=== PATIENT | male | born 1940 | race Caucasian/White ===

== ENCOUNTER 2016-07-24 12:04 | Emergency (ER) | payer MEDICARE, OTHER ==
[2016-07-24 12:53] LABS: BASOPHILS % 0.5 (0.0-1.5); EOSINOPHILS % 5.8 % (0.0-6.8); MEAN CORPUSCULAR HEMOGLOBIN 29.7 pg (28.0-34.0); MEAN CORPUSCULAR VOLUME 91.2 fl (80.0-100.0); MONOCYTES % 5.7 % (0.0-11.0); NEUTROPHILS # 9.8 # k/uL (1.4-7.7)
[2016-07-24 12:58] LABS: APPEARANCE,URINE Clear (CLEAR); COLOR,URINE Yellow (YELLOW); OCCULT BLOOD,URINE Negative (NEGATIVE); PH URINE 6.5 (5.0 - 8.0); UROBILINOGEN URINE 0.2 Eu (0.2-1.0)
[2016-07-24] MEDS ORDERED: 0.9 % SODIUM CHLORIDE 500 ML IV ONE (13:10)
[2016-07-24 13:11] LABS: eGFR (African) > 60; eGFR (Non-African) > 60
--- NOTE | 2016-07-24 13:28 | ED Physician Documentation ---
General Adult - HISTORIAN Historian: paramedics, other ([place] report, records) - HPI Stated Complaint: fall with mental status changes Chief Complaint: General Adult Additional Information: [place] resident brought to ER per EMS. Said to have fallen from last evening, face to floor. Today is thought to be less responsive than his usual. - ROS CONST: no problems - PAST HX Past History: hypertension, other (dementia) Other History: other (dementia) Allergies/Adverse Reactions: Allergies Allergy/AdvReac Type Severity Reaction Status Date / Time No Known Allergies Allergy Verified 07/24/16 12:36 Home Medications: Ambulatory Orders Medication Instructions Recorded Donepezil HCl 10 mg PO HS 10/21/14 Levothyroxine Sodium 25 mcg PO DAILY 10/21/14 [Levothyroxine Sodium] Aspirin [Adult Low Dose Aspirin EC] 81 mg PO DAILY 07/24/16 Lactobacillus Acidophilus/Fos 1 tab PO TID 07/24/16 [Acidophilus Probiotic Tablet] Lisinopril [Prinivil] 20 mg PO BID 07/24/16 Memantine HCl [Namenda] 10 mg PO DAILY 07/24/16 Vit No.124/Iron/FA 1 tab PO DAILY 07/24/16 [ Vitamin Tablet] Thiamine HCl [Vitamin B-1] 100 mg PO DAILY 07/24/16 - SOCIAL HX Smoking History: non-smoker - FAMILY HX Family History: No - VITAL SIGNS Vital Signs: Vital Signs Temp Pulse Resp BP Pulse Ox 99/53 10/21/14 17:30 - REVIEWED ASSESSMENTS Nursing Assessment Reviewed: Yes Vitals Reviewed: Yes Progress - Progress Progress: Examination: CT head without contrast History: Fall Comparison exam: 04 Jul 2014 Technique: Noncontrast head CT protocol. Findings: Patient offset in scanner. Ventricles and sulci are prominent though stable to previous exam. Cerebrocerebellar parenchyma demonstrates periventricular attenuation consistent with age related small vessel disease: stable to previous exam. No evidence for parenchymal hemorrhage. No evidence for mass or mass effect. No midline shift. No extra axial fluid collections. Partial visualization of the paranasal sinuses demonstrate mucus thickening. Mastoid air cells, orbits, skull and scalp without gross regularity. Streak artifact from dental hardware. Impression: Extensive age related changes: stable to previous exam. No acute parenchymal process. No hemorrhage. Electronically signed on Jul 24, 2016 1:02:29 PM CDT by: Antony Donohue Examination: Portable chest History: Congestion, coughing Comparison exam: 4S2014 Findings: Single portable view of the chest demonstrates a normal cardiac silhouette. Mild tortuosity of thoracic aorta. Few vascular calcifications involving the aortic arch. Linear infiltrate right lung base. Left hemithorax without irregularity. Minimal blunting of the right costophrenic angle. Left costophrenic margin without abnormality. Osseous structures are appropriate for age. Impression: Right lung base infiltrate and likely small effusion. Follow is warranted. Electronically signed on Jul 24, 2016 1:18:40 PM CDT by: Antony Donohue EKG: sinus rhythm, 70 BPM, no acute changes. 1325, discussed pt with Dr. Fallon. ED Results Lab/Radiology - Lab Results Lab Results: Lab Results 07/24/16 12:45 WBC 12.40 K/ul H K/ul (4.00-12.00) RBC 4.84 M/ul M/ul (3.90-5.20) Hgb 14.4 g/dL g/dL (12.0-18.0) Hct 44.1 % % (37.0-53.0) MCV 91.2 fl fl (80.0-100.0) MCH 29.7 pg pg (28.0-34.0) MCHC 32.6 g/dL g/dL (30.0-36.0) RDW 13.5 % % (11.3-14.3) Plt Count 212 K/mm3 K/mm3 (130-400) Neut % (Auto) 78.8 % % (39.0-79.0) Lymph % (Auto) 8.3 % L % (16.0-50.0) [place] % (Auto) 5.7 % % (0.0-11.0) Eos % (Auto) 5.8 % % (0.0-6.8) Baso % (Auto) 0.5 (0.0-1.5) Neut # 9.8 # k/uL H # k/uL (1.4-7.7) Lymph # 1.0 # k/uL # k/uL (0.6-4.0) [place]irt # 0.7 # k/uL # k/uL (0.0-0.9) Eos # 0.7 # k/uL H # k/uL (0.0-0.6) Baso # 0.1 # k/uL # k/uL (0.0-0.5) Reactive Lymphs % 1.0 % % (0.0-5.0) Reactive Lymphs # 0.1 # k/uL # k/uL (0.0-0.8) - Orders Orders: ED Orders Category Date Time Status Continuous EKG monitoring Q1H Care 07/24/16 12:17 Active Continuous Pulse Oximetry Q1H Care 07/24/16 12:[address] IV Lock 1T Care 07/24/16 12:16 Active CHEST 1 VIEW [RAD] Stat Exams 07/24/[address] BRAIN W/O CONTRAST Stat Exams 07/24/16 Ordered CBC/PLATELET/DIFF Routine Lab 07/24/16 12:45 Completed CMP Routine Lab 07/24/16 12:45 Received UA [URINALYSIS] Routine Lab 07/24/16 12:45 Received Chem Sticks Med 07/24/16 13:00 Ordered 1 each CHEMQ EKG WITH COMPARISON Stat Ther 07/24/16 Ordered General Adult Physical Exam - PHYSICAL EXAM GENERAL APPEARANCE: no distress EENT: no signs of dehydration, other (right pupil 3 mm and reactive. Won't allow left eye to be opened. ) NECK: normal inspection, supple RESPIRATORY: no resp distress, breath sounds normal CVS: reg rate & rhythm, heart sounds normal ABDOMEN: soft, normal bowel sounds, no distension, non-tender RECTAL: deferred BACK: normal inspection SKIN: warm/dry, normal color, other (superficial abrasions forehead) EXTREMITIES: non-tender, other (abrasion mid left lower leg. R lateral flexion contracture of neck, 25 degrees) NEURO: other (verbal at times - mostly unintelligible. Does not follow commands. Spontaneous R eye opening. ) Discharge Clincal Impression: Right lower lobe pneumonia Qualifiers: Pneumonia type: due to unspecified organism Qualified Code(s): J18.1 - Lobar pneumonia, unspecified organism Referrals: Luis Daniel Fallon MD [Primary Care Provider] - 2 Days Home Medications: Ambulatory Orders Donepezil HCl 10 mg PO HS 10/21/14 Levothyroxine Sodium [Levothyroxine Sodium] 25 mcg PO DAILY 10/21/14 Aspirin [Adult Low Dose Aspirin EC] 81 mg PO DAILY 07/24/16 Lactobacillus Acidophilus/Fos [Acidophilus Probiotic Tablet] 1 tab PO TID Lisinopril [Prinivil] 20 mg PO BID 07/24/16 Memantine HCl [Namenda] 10 mg PO DAILY 07/24/16 Vit No.124/Iron/FA [ Vitamin Tablet] 1 tab PO DAILY 07/24/16 Thiamine HCl [Vitamin B-1] 100 mg PO DAILY 07/24/16 Condition: Good Disposition: 01 HOME, SELF-CARE Decision to Admit: NO Decision Time: 13:28
[2016-07-24] MEDS ORDERED: AZITHROMYCIN 200 MG/5 ML PO ONE (13:46)
[2016-07-24 14:14] VITALS: BP 132/74
--- NOTE | 2016-07-24 14:51 | Diagnostic Imaging Report ---
ESTHER BENSON - ROSELINE [facility] [address] [facility] [address] [place], [place]. [address] Report Submission Date: Jul 24, 2016 1:18:40 PM CDT Patient Study Name: ANN FREDERICK Date: Jul 24, 2016 12:55:45 PM CDT Modality Type: CR Gender: M Description: CHEST : 40 Institution: [facility] Physician: ESTHER BENSON - ROSELINE Examination: Portable chest History: Congestion, coughing Comparison exam: [id number] Findings: Single portable view of the chest demonstrates a normal cardiac silhouette. Mild tortuosity of thoracic aorta. Few vascular calcifications involving the aortic arch. Linear infiltrate right lung base. Left hemithorax without irregularity. Minimal blunting of the right costophrenic angle. Left costophrenic margin without abnormality. Osseous structures are appropriate for age. Impression: Right lung base infiltrate and likely small effusion. Follow is warranted. Electronically signed on Jul 24, 2016 1:18:40 PM CDT by: Antony SCHROEDER
--- NOTE | 2016-07-24 14:51 | Diagnostic Imaging Report ---
ESTHER BENSON [facility] [address] [facility] [address] [place], [place]. [address] Report Submission Date: Jul 24, 2016 1:02:29 PM CDT Patient Study Name: ANN FREDERICK Date: Jul 24, 2016 12:25:50 PM CDT Modality Type: CT\SR Gender: M Description: CT BRAIN W/O CONTRAST : 40 Institution: [facility] Physician: ESTHER BENSON Examination: CT head without contrast History: Fall Comparison exam: 04 Jul 2014 Technique: Noncontrast head CT protocol. Findings: Patient offset in scanner. Ventricles and sulci are prominent though stable to previous exam. Cerebrocerebellar parenchyma demonstrates periventricular attenuation consistent with age related small vessel disease: stable to previous exam. No evidence for parenchymal hemorrhage. No evidence for mass or mass effect. No midline shift. No extra axial fluid collections. Partial visualization of the paranasal sinuses demonstrate mucus thickening. Mastoid air cells, orbits, skull and scalp without gross regularity. Streak artifact from dental hardware. Impression: Extensive age related changes: stable to previous exam. No acute parenchymal process. No hemorrhage. Electronically signed on Jul 24, 2016 1:02:29 PM CDT by: Antony SCHROEDER
== END 2016-07-24 14:25 | disposition home or self-care (01) ==
LOC: ED 12:04
DX: J18.1 Lobar pneumonia, unspecified organism (principal)
CPT/HCPCS: 51701; 70450; 71010; 80053; 81002; 85025; 87040; J7060; 96360; 99284

== ENCOUNTER 2016-10-10 15:38 | Emergency (ER) | payer MEDICARE, OTHER ==
[2016-10-10] MEDS ORDERED: IPRATROPIUM/ALBUTEROL SULFATE 3 ML AMPUL.NEB NEB ONE (15:48)
[2016-10-10] MEDS ORDERED: BUDESONIDE 0.5MG/2ML AMPUL.NEB NEB ONE (15:49)
[2016-10-10] MEDS ORDERED: 0.9 % SODIUM CHLORIDE 1,000 ML IV SCH (16:00)
[2016-10-10 16:11] LABS: BASOPHILS % 0.7 (0.0-1.5); MEAN CORPUSCULAR HEMOGLOBIN 30.3 pg (28.0-34.0); MONOCYTES % 5.1 % (0.0-11.0); NEUTROPHILS # 6.1 # k/uL (1.4-7.7)
[2016-10-10] MEDS ORDERED: 0.9 % SODIUM CHLORIDE 1,000 ML IV ONE (16:12)
[2016-10-10 16:36] LABS: eGFR (African) > 60; eGFR (Non-African) 57
[2016-10-10] MEDS ORDERED: CEPHALEXIN 250 MG CAPSULE PO ONE (17:11)
[2016-10-10] MEDS ORDERED: METOCLOPRAMIDE HCL 5 MG TABLET PO ONE (17:11)
--- NOTE | 2016-10-10 17:11 | ED Physician Documentation ---
Upper Respiratory Symptoms - HISTORIAN Historian: other (medical record) - HPI Stated Complaint: Shortness of Breath Chief Complaint: Cough/ Upper Respiratory Additional Information: copious amounts of oral secretions/mucous Onset: minutes (30) Duration: sudden-Onset Context: denies: recent foreign travel, insect bite(s), tick(s), recent chemotherapy, multiple patients, same sx Severity: moderate Associated Symptoms: denies: fever, chills, sweating, earache, runny nose, sinus pain, sinus drainage, sore throat, hoarseness, allergy, hay fever, chest pain, bloody cough, productive cough, shortness of breath, hurts to breathe, headache Worsened by Deep Breath: No Further Comments: no - ROS CONST/EYES: denies: weakness, eye redness, eye itching CVS/RESP: other (cough). denies: chest pain, shortness of breath LYMPH: denies: leg swelling, rash, swollen glands, ankle swelling GI/: other (copious oral mucous production) NEURO/PSYCH: confusion (demented). denies: fainting, dizziness, anxiety, depression MS/SKIN: denies: joint pain, muscle aches, rash - PAST HX Lung Disease: none PE Risk Factors: none Other History: hypertension, other (hypothyroidism) Surgeries/Procedures: none Immunizations: referred to PCP Allergies/Adverse Reactions: Allergies Allergy/AdvReac Type Severity Reaction Status Date / Time No Known Allergies Allergy Verified 07/24/16 12:36 Home Medications: Ambulatory Orders Medication Instructions Recorded Donepezil HCl 10 mg PO HS 10/21/14 Levothyroxine Sodium 25 mcg PO DAILY 10/21/14 [Levothyroxine Sodium] Aspirin [Adult Low Dose Aspirin EC] 81 mg PO DAILY 07/24/16 Lactobacillus Acidophilus/Fos 1 tab PO TID 07/24/16 [Acidophilus Probiotic Tablet] Lisinopril [Prinivil] 20 mg PO BID 07/24/16 Memantine HCl [Namenda] 10 mg PO BID 07/24/16 Vit No.124/Iron/FA 1 tab PO DAILY 07/24/16 [ Vitamin Tablet] Thiamine HCl [Vitamin B-1] 100 mg PO DAILY 07/24/16 Acetaminophen [Tylenol] 650 mg PO TID PRN 10/10/16 Cholecalciferol [Vitamin D-3] 1,000 unit PO DAILY 10/10/16 Thiamine HCl [Vitamin B-1] 100 mg PO DAILY 10/10/16 - SOCIAL HX Smoking History: non-smoker Alcohol Use: none Drug Use: none - FAMILY HX Family History: no significant history - VITAL SIGNS Vital Signs: Vital Signs Temp Pulse Resp BP Pulse Ox 98.1 F 78 20 130/68 97 10/10/16 15:40 10/10/16 17:42 10/10/16 17:42 10/10/16 17:42 10/10/16 17:42 - REVIEWED ASSESSMENTS Nursing Assessment Reviewed: Yes Vitals Reviewed: Yes Progress - Results/Orders Results/Orders: cbc, cmp, ua, sputum and blood cultures, cxr, pt/ptt/inr ordered - Progress Progress: pt. given 1 liter ns, 10 mg reglan p.o., keflex 1000 mg p.o., duoneb and pulmicort 0.5 mg nebulizer txs in er Critical Care Note - Critical Care Note Total Time (mins): 0 ED Results Lab/Radiology - Lab Results Lab Results: Lab Results 10/10/16 10/10/16 10/10/16 16:05 16:05 16:05 WBC 8.90 K/ul K/ul (4.00-12.00) RBC 4.90 M/ul M/ul (3.90-5.20) Hgb 14.8 g/dL g/dL (12.0-18.0) Hct 45.1 % % (37.0-53.0) MCV 92.0 fl fl (80.0-100.0) MCH 30.3 pg pg (28.0-34.0) MCHC 32.9 g/dL g/dL (30.0-36.0) RDW 13.4 % % (11.3-14.3) Plt Count 177 K/mm3 K/mm3 (130-400) Neut % (Auto) 68.3 % % (39.0-79.0) Lymph % (Auto) 18.3 % % (16.0-50.0) [place] % (Auto) 5.1 % % (0.0-11.0) Eos % (Auto) 6.0 % % (0.0-6.8) Baso % (Auto) 0.7 (0.0-1.5) Neut # (Auto) 6.1 # k/uL # k/uL (1.4-7.7) Lymph # (Auto) 1.6 # k/uL # k/uL (0.6-4.0) [place] # (Auto) 0.4 # k/uL # k/uL (0.0-0.9) Eos # (Auto) 0.5 # k/uL # k/uL (0.0-0.6) Baso # (Auto) 0.1 # k/uL # k/uL (0.0-0.5) Reactive Lymphs % 1.6 % % (0.0-5.0) Reactive Lymphs # 0.1 # k/uL # k/uL (0.0-0.8) PT 12.7 Seconds H Seconds (9.4-11.6) INR 1.21 H (0.9-1.2) APTT 37.0 Seconds H Seconds (24.5-32.8) Sodium 145 mmol/L mmol/L (136-145) Potassium 4.3 mmol/L mmol/L (3.5-5.0) Chloride 106 mmol/L mmol/L (98-110) Carbon Dioxide 31 mmol/L mmol/L (20-32) BUN 18 mg/dL mg/dL (10-26) Creatinine 1.3 mg/dL mg/dL (0.4-1.5) Estimated Creat Clear 55 Est GFR ( Amer) > 60 (60 - ) Est GFR (Non-Af Amer) 57 L (60 - ) Glucose 112 mg/dL H mg/dL (70-99) Calcium 10.2 mg/dL mg/dL (8.5-10.5) Total Bilirubin 0.5 mg/dL mg/dL (0.2-1.2) AST 24 U/L U/L (0-41) ALT 19 U/L U/L (0-45) Alkaline Phosphatase 77 U/L U/L (46-116) Total Protein 8.0 g/dL g/dL (6.0-8.5) Albumin 4.5 g/dL g/dL (3.0-5.5) - Radiology Radiology Impressions: cxr neg for infiltrate - Orders Orders: ED Orders Category Date Time Status Place IV Lock 1T Care 10/10/16 15:46 Active CHEST 1 VIEW [RAD] Routine Exams 10/10/16 Completed BLOOD CULTURE Routine Lab 10/10/16 16:05 Received CBC/PLATELET/DIFF Routine Lab 10/10/16 16:05 Completed CMP Routine Lab 10/10/16 16:05 Completed PT-INR Routine Lab 10/10/16 16:05 Completed PTT Routine Lab 10/10/16 16:05 Completed SPUTUM CULTURE Routine Lab 10/10/16 17:45 Received URINALYSIS Routine Lab 10/10/16 15:46 Ordered 0.9 % Sodium Chloride [Normal Saline] 1,000 ml Med 10/10/16 16:00 Discontinued IV .Q1H 0.9 % Sodium Chloride [Normal Saline] 1,000 ml Med 10/10/16 16:12 Discontinued IV .STK-MED Budesonide [Pulmicort] Med 10/10/16 15:49 Discontinued 0.5 mg NEB 1T ONE Cephalexin [Keflex] Med 10/10/16 17:11 Discontinued 1,000 mg PO NOW ONE Ipratropium/Albuterol Sulfate [Duoneb] Med 10/10/16 15:48 Discontinued 3 ml NEB NOW ONE Metoclopramide HCl [Reglan] Med 10/10/16 17:11 Discontinued 10 mg PO NOW ONE Upper Respiratory Symptoms - EXAM General Appearance: alert, moderate distress EENT: eyes nml inspection, nml ENT inspection, lids & conjunct. nml, PERRL, ear nml, nose nml, pharynx nml, other (oral secretions). No: pain over sinuses, pharyngeal erythema, tonsillar exudate Neck: normal inspection, thyroid normal Respiratory: no resp. distress, breath sounds nml, no pain on inspiration, other (dry cough from mucous) Abdomen: non-tender, no organomegaly CVS: reg rate & rhythm, heart sounds normal, equal pulses Skin: color nml, no rash, warm,dry Extremities: non-tender, normal range of motion, no evidence of injury, no edema Neuro/Psych: mood/affect nml Discharge Clincal Impression: Chronic GERD Referrals: Luis Daniel Fallon MD [Primary Care Provider] - 2 Days Home Medications: Ambulatory Orders Donepezil HCl 10 mg PO HS 10/21/14 Levothyroxine Sodium [Levothyroxine Sodium] 25 mcg PO DAILY 10/21/14 Aspirin [Adult Low Dose Aspirin EC] 81 mg PO DAILY 07/24/16 Lactobacillus Acidophilus/Fos [Acidophilus Probiotic Tablet] 1 tab PO TID Lisinopril [Prinivil] 20 mg PO BID 07/24/16 Memantine HCl [Namenda] 10 mg PO BID 07/24/16 Vit No.124/Iron/FA [ Vitamin Tablet] 1 tab PO DAILY 07/24/16 Thiamine HCl [Vitamin B-1] 100 mg PO DAILY 07/24/16 Acetaminophen [Tylenol] 650 mg PO TID PRN 10/10/16 Cholecalciferol [Vitamin D-3] 1,000 unit PO DAILY 10/10/16 Thiamine HCl [Vitamin B-1] 100 mg PO DAILY 10/10/16 Comments: Discharged in stable condition with scripts for Reglan 1 p.o. ac and hs and Keflex 500 mg 2 p.o. bid x 1 week to prevent aspiration pneumonia. Condition: Stable Disposition: 01 HOME, SELF-CARE Decision to Admit: NO Decision Time: 17:09
[2016-10-10 17:45] VITALS: BP 130/68
--- NOTE | 2016-10-10 19:22 | Diagnostic Imaging Report ---
HALEY FELIX [facility] [address] [facility] [address] [place], [place]. [address] Report Submission Date: Oct 10, 2016 4:19:28 PM CDT Patient Study Name: ANN FREDERICK Date: Oct 10, 2016 4:00:31 PM CDT Modality Type: CR Gender: M Description: CHEST : 40 Institution: [facility] Physician: HALEY FELIX Chest AP portable at 1600 hours of from October 10, 2016 Clinical history: Cough and dyspnea Normal heart shadow. Atherosclerotic thoracic aorta. No acute infiltrate or pleural effusion. No pneumothorax. Underlying mild degree of emphysema . Impression: Atherosclerotic thoracic aorta Mild pulmonary emphysema No acute infiltrates or pleural effusion Electronically signed on Oct 10, 2016 4:19:28 PM CDT by: Luis Daniel SCHROEDER
== END 2016-10-10 17:42 | disposition home or self-care (01) ==
LOC: ED 15:38
DX: K21.9 Gastro-esophageal reflux disease without esophagitis (principal); R06.02 Shortness of breath
CPT/HCPCS: 71010; 80053; 85025; 85610; 85730; 87040; 87070; J7030; J7626; 96360; 99283; S1016